=== PATIENT | female | born 1985 | race Two or more races ===

== ENCOUNTER 2018-07-20 15:32 | Inpatient (IN) ==
--- NOTE | 2018-07-20 08:19 | MH ---
cc: Angelo Gallegos MD DATE OF ADMISSION: 07/20/2018 ADMITTING DIAGNOSIS: Term with macrosomia. HISTORY OF PRESENT ILLNESS: The patient is a 32-year-old, , -Finnish female, para 2-0-0-2, with an EDC of 07/24/2018 by early ultrasound, 06/20/2018 by dates. Her course has been benign. Her current affected by macrosomia with ultrasound done through [facility] on 07/16/2018, showed a weight of approximately 4300 grams with a large vertex. Her previous largest delivery was difficult at 7 pounds and 2 ounces. PAST SURGICAL HISTORY: None. MEDICATIONS: Vitamins. ALLERGIES: NONE. TRANSFUSIONS: None. OBSTETRIC HISTORY: Vaginal delivery in 2011 at 6 pounds 1 ounce and 2012 at 7 pounds 2 ounces. SOCIAL HISTORY: She is , employed at [employer]. Alcohol, tobacco, and drugs are none. FAMILY HISTORY: Noncontributory. REVIEW OF SYSTEMS: Negative. PHYSICAL EXAMINATION: GENERAL: She is a well-nourished, well-developed, -Finnish female. VITAL SIGNS: Stable. HEENT: Normal. CHEST: Clear. HEART: Rate regular. BREASTS: Symmetrical. ABDOMEN: Gravid. EFW of 4300 grams. Cervix is long, thick, and closed. Vertex is ballotable. normal. DIAGNOSTIC DATA: Her ultrasound also showed an anterior placenta. ASSESSMENT AND PLAN: As above. She is now admitted for a primary . In the office, we discussed the risks, benefits, and complications of versus attempted vaginal delivery. The patient would like to proceed. I also discussed variability in the weight estimates plus or minus 10%. MD SHANTELL Clifton/betsy/pascual , 07:43 AM , 07:50 AM
[~2018-07-20 15:32] MED LIST: Ketorolac Inj 30 MG/ML (IVP) Vial IV.PUSH PRN; Morphine Sulfate PF Inj 5 MG/10 ML Ampul ONE
[2018-07-20 16:34] LABS: Baso % (Auto) 0.3 % (0.0-2.0); Eos % (Auto) 0.1 % (0.0-4.0); Hematocrit 36.1 % (35.0-46.0); Hemoglobin 12.2 gm/dL (11.6-15.3); Lymph # (Auto) 1.6 th/mm3 (1.0-4.8); Lymph % (Auto) 18.1 % (9.0-44.0); Mean Corpuscular HGB Conc 33.8 % (32.0-36.0); Mean Corpuscular Hemoglobin 30.9 pg (27.0-34.0); Mean Corpuscular Volume 91.5 fL (80.0-100.0); Mean Platelet Volume 9.3 fL (7.0-11.0); Mono # (Auto) 0.4 th/mm3 (0.0-0.9); Neut # (Auto) 6.8 th/mm3 (1.8-7.7); Neut % (Auto) 77.5 % (16.0-70.0); Platelet Count 228 th/mm3 (150-450); Red Blood Count 3.95 mil/mm3 (4.00-5.30); Red Cell Distribution Width 14.3 % (11.6-17.2); White Blood Count 8.8 th/mm3 (4.0-11.0)
[2018-07-20 16:56] LABS: Bacteria,Urine Moderate /hpf; Bilirubin,Urine Negative (Negative); Clarity,Urine Hazy (Clear); Color,Urine Yellow (Yellw/Straw); Glucose,Urine (UA) Negative (Negative); Hyaline Casts,Urine 1 /lpf (0-3); Leukocyte Esterase,Urine Trace (Negative); Mucus,Urine Moderate /lpf (Occasional); Nitrite,Urine Negative (Negative); Specific Gravity,Urine 1.023 (1.002-1.035); Squamous Epithelial Cell,Urine 5 /hpf (0-5)
[2018-07-20 16:57] LABS: Amphetamine Screen,Urine Neg (Neg); Barbiturate Screen,Urine Neg (Neg); Cannabinoid Screen,Urine Neg (Neg); Cocaine Screen,Urine Neg (Neg)
[2018-07-20 17:07] LABS: Opiate Screen,Urine Neg (Neg)
[2018-07-20] MEDS ORDERED: ceFAZolin 2 GM Premix Inj 2 GM/50 ML PIGGYBACK IV.SIG SCH (17:15)
[2018-07-20] MEDS ORDERED: Citric Acid/Sodium Citrate Liq 30 ML UDC PO SCH (17:15)
[2018-07-20] MEDS ORDERED: Phenylephrine/NS 1000 MCG/10ML Syringe IV.PUSH ONE (17:47)
[2018-07-20] MEDS ORDERED: Ketorolac Inj 30 MG/ML (IVP) Vial IM ONE (17:47)
[2018-07-20] MEDS ORDERED: Simethicone 80 MG Chew Tablet PO PRN (17:47)
[2018-07-20] MEDS ORDERED: Ketorolac Inj 30 MG/ML (IVP) Vial IV.PUSH ONE (17:47)
[2018-07-20] MEDS ORDERED: Oxytocin 30 Units/500ml Premix 30 UNITS/500 ML BAG IV.SIG ONE ×2 (17:47→18:15)
[2018-07-20] MEDS ORDERED: Naloxone Inj 0.4 MG/ML Vial IV.PUSH PRN (18:00)
--- NOTE | 2018-07-20 19:11 | MP ---
cc: Angelo Gallegos MD DATE OF OPERATION: 07/20/2018 PREOPERATIVE DIAGNOSES: 1. Term . 2. macrosomia. POSTOPERATIVE DIAGNOSES: 1. Term . 2. macrosomia. 3. Delivery. PROCEDURE PERFORMED: Primary low transverse section. ANESTHESIA: Spinal. SURGEON: Angelo Gallegos MD ONCOLOGY RADIATION PHYSICIAN: DAYSI Navarro ESTIMATED BLOOD LOSS: 700 mL. FLUIDS: 1 liter of crystalloid. OBJECTIVE FINDINGS: Following induction of adequate spinal anesthesia, the patient was prepped and draped supine on the operating table in a left lateral tilt position in usual sterile fashion with the bladder being drained by Babcock catheterization. The vertex was palpable above the symphysis pubis. The abdomen was opened through a Pfannenstiel incision using a knife to cut down through the skin to the fascia. The fascia opened transversely, stripped from the muscles. Rectus muscles split in the midline and the peritoneum opened sharply without incident. The bladder flap was taken down sharply and retracted inferior with a [place] blade. The lower uterine segment was incised transversely with a knife, extended with blunt dissection. Membranes were ruptured with clear fluid. Baby was in the LOT position. The vacuum extractor applied to the occiput and used to gently lift the head through the uterine abdominal wound. Mouth was suctioned. The cord clamped and cut and the baby passed to the team. A viable vigorous female, Apgars 9 and 9, weight 9 pounds 5 ounces. Cord blood collected for typing. The placenta manually removed. Uterine cavity cleaned with laps. Uterus exteriorized and closed in 2 layers of running suture, first with a running locking stitch of 0 Vicryl, second with a running imbricating stitch of 0 Vicryl. Posterior inspection of the uterus, tubes and ovaries was normal uterus. The uterus was replaced in the cavity. Irrigation performed. No bleeding was evident and bladder flap was closed with a running stitch of 3-0 Vicryl. All laps and retractors removed. Counts were correct. The anterior peritoneum closed with running 2-0 Vicryl and the fascia closed with a running locking stitch of 0 Vicryl corner to midline and tied. Subcutaneous closed with 3-0 Vicryl and the skin with a running subcuticular 3-0 Monocryl. Dermabond applied. All counts were correct. The patient was awakened and taken to the recovery room in good condition. MD SHANTELL Clifton/pennie , 06:45 PM , 06:56 PM
[2018-07-20] MEDS ORDERED: Zolpidem Tartrate 5 MG Tablet PO PRN (21:00)
[2018-07-20] MEDS ORDERED: Oxytocin 30 Units/500ml Premix 30 UNITS/500 ML BAG IV.SIG PRN (22:47)
[2018-07-21 05:54] LABS: Baso % (Auto) 0.3 % (0.0-2.0); Hematocrit 23.9 % (35.0-46.0); Hemoglobin 8.4 gm/dL (11.6-15.3); Lymph # (Auto) 1.4 th/mm3 (1.0-4.8); Lymph % (Auto) 13.6 % (9.0-44.0); Mean Corpuscular HGB Conc 35.3 % (32.0-36.0); Mean Corpuscular Hemoglobin 31.7 pg (27.0-34.0); Mean Corpuscular Volume 89.7 fL (80.0-100.0); Mean Platelet Volume 8.5 fL (7.0-11.0); Mono # (Auto) 0.7 th/mm3 (0.0-0.9); Mono % (Auto) 6.4 % (0.0-8.0); Neut # (Auto) 8.2 th/mm3 (1.8-7.7); Neut % (Auto) 79.7 % (16.0-70.0); Platelet Count 160 th/mm3 (150-450); Red Blood Count 2.66 mil/mm3 (4.00-5.30); Red Cell Distribution Width 14.3 % (11.6-17.2); White Blood Count 10.3 th/mm3 (4.0-11.0)
[2018-07-21] MEDS ORDERED: Measles/Mumps/Rubella Vaccine Inj 0.5 ML Vial SQ ONE (16:00)
[2018-07-21] MEDS ORDERED: Diphtheria/Tetanus/Pertussis Vaccine Inj 0.5 ML Syringe IM ONE (16:00)
[2018-07-21] MEDS: Senna/Docusate Sodium 8.6/50 MG Tablet PO PRN (16:29)
[2018-07-22 08:15] VITALS: BP 103/51; PULSE 85; RESP 20; TEMP 98.9; O2SAT 97
[2018-07-22 08:54] LABS: Hematocrit 23.1 % (35.0-46.0); Mean Corpuscular HGB Conc 34.8 % (32.0-36.0); Mean Corpuscular Hemoglobin 31.6 pg (27.0-34.0); Mean Corpuscular Volume 90.9 fL (80.0-100.0); Mean Platelet Volume 8.6 fL (7.0-11.0); Platelet Count 167 th/mm3 (150-450); Red Blood Count 2.54 mil/mm3 (4.00-5.30); Red Cell Distribution Width 14.3 % (11.6-17.2); White Blood Count 8.1 th/mm3 (4.0-11.0)
[2018-07-22] MEDS: Senna/Docusate Sodium 8.6/50 MG Tablet PO PRN (09:53)
--- NOTE | 2018-07-22 10:14 | MD ---
cc: Angelo Gallegos MD DATE OF DISCHARGE: 07/22/2018 ADMITTING DIAGNOSES: 1. Term . 2. macrosomia. DISCHARGE DIAGNOSES: 1. Term . 2. macrosomia. 3. Delivered. HISTORY OF PRESENT ILLNESS: The patient is a 32-year-old , -Malaysian female, para 2-0-0-2, with EDC of 07/24/2018 by early ultrasound. Her course is benign. Panorama testing normal. Blood type was positive. At term, the baby was felt to be in the range of 4300 grams with a high vertex. Previous delivery max have been 7 pounds 2 ounces and difficult. The patient was counseled and elected for admit for on 07/20/2018, had a viable vigorous female, Apgars were 9 and 9. weight was 9 pounds 5 ounces. The baby was named Katy. She was . Her 24. Blood type was positive. She felt extremely well, requests discharge on 07/22/2018, was advised NPV, light activity, no driving, return to see me in 2 weeks. She will call if abnormal pain, bleeding, temperature, signs of infection or depression. She will take her iron pills daily. She was given a script for Percocet 5 mg one p.o. q. 4 hours p.r.n. pain, number 30. Database search was done. MD SHANTELL Clifton/ramonita/lisa , 08:35 AM , 08:40 AM
== END 2018-07-22 13:57 | disposition home or self-care (01) ==
LOC: H2E 15:32 → H1EA 20:19
PROVIDERS: ADMIT Obstetrics & Gynecology; ATTEND Obstetrics & Gynecology